=== PATIENT | male | born 1935 | race Caucasian/White ===

== ENCOUNTER 2016-09-09 05:39 | Inpatient (IN) | payer MEDICARE ==
[2016-09-09 06:17] LABS: ABSOLUTE EOSINOPHILS # (AUTO) 0.2 10^3/uL (0.0-0.6); ABSOLUTE LYMPHOCYTES (AUTO) 1.1 10^3/uL (0.5-4.7); ABSOLUTE MONOCYTES (AUTO) 1.9 10^3/uL (0.1-1.4); ABSOLUTE NEUT (AUTO) 10.6 10^3/uL (1.7-8.2); BASOPHILS % (AUTO) 0.3 % (0-2); EOSINOPHILS % (AUTO) 1.5 % (0-6); HEMATOCRIT 34.4 % (37.9-51.0); HEMOGLOBIN 11.8 g/dL (13.5-17.0); LYMPHOCYTES % (AUTO) 7.8 % (13-45); MEAN CORPUSCULAR HEMOGLOBIN 31.5 pg (27.0-33.4); MEAN CORPUSCULAR HGB CONC 34.4 g/dL (32.0-36.0); MEAN CORPUSCULAR VOLUME 92 fl (80-97); MONOCYTES % (AUTO) 13.7 % (3-13); RED BLOOD COUNT 3.75 10^6/uL (4.35-5.55); RED CELL DISTRIBUTION WIDTH 13.6 % (11.5-14.0); SEGMENTED NEUTROPHILS % (AUTO) 76.7 % (42-78); WHITE BLOOD COUNT 13.9 10^3/uL (4.0-10.5)
[2016-09-09 06:25] LABS: ARTERIAL BLOOD BASE EXCESS 1.6 mmol/L; ARTERIAL BLOOD O2 SATURATION 92.5 % (94-98)
--- NOTE | 2016-09-09 06:25 | ER Document Report ---
ED Respiratory Problem <RUMA LLOYD - Last Filed: 09/09/16 10:01> - General Mode of Arrival: Ambulatory Information source: Patient - HPI Patient complains to provider of: Short of breath Onset: Last week Duration: Worse/persistent Context: Hx COPD. denies: Hx asthma, Hx CHF, Recent cardiac event Cough: Nonproductive Associated symptoms: Cough, Difficulty breathing, Sweaty, Wheezing. denies: Ankle/leg swelling <DEYA TABARES - Last Filed: 09/14/16 06:01> - General Chief Complaint: Breathing Difficulty Stated Complaint: TROUBLE BREATHING,FEVER Notes: Patient is a 80-year-old male presenting to the emergency department concerned of difficulty breathing onset 1 week ago. Patient states that he recently has felt more sick and weak. Patient complains of cough and diaphoresis, but denies nausea, vomiting, or diarrhea. Patient's states that this morning prior to coming to the emergency department patient had a temperature of 100.4 . Patient and his are visiting from [place]. (DEYA TABARES) - Related Data Allergies/Adverse Reactions: levofloxacin [From Levaquin] Allergy (Verified 09/09/16 06:25) Sulfa (Sulfonamide Antibiotics) Allergy (Verified 09/09/16 06:25) Iodinated Contrast Media - Oral and Adverse Reaction (Verified 09/09/16 06:25) Home Medications: Current Home Medications Albuterol Sulfate [Proair HFA] 2 puff IN PRN PRN 09/09/16 [History] Diltiazem HCl [Cartia Xt] 1 cap PO DAILY 09/09/16 [History] Esomeprazole Magnesium [Nexium] 1 cap PO DAILY 09/09/16 [History] Fluticasone/Salmeterol [Advair 500-50 Diskus 28 Dose] 2 puff IN BID 09/09/16 [ History] Tamsulosin HCl [Tamsulosin HCl] 1 cap PO DAILY 09/09/16 [History] Theophylline Anhydrous [Theophylline] 1 tab PO BID 09/09/16 [History] Past Medical History - General Information source: Patient - Social History Smoking Status: Unknown if Ever Smoked Drug Abuse: None Lives with: Spouse/Significant other Family History: Reviewed & Not Pertinent - Past Medical History Cardiac Medical History: Denies: Hx Congestive Heart Failure Pulmonary Medical History: Reports: Hx COPD Denies: Hx Asthma Traumatic Medical History: Reports: Other - April 08, 2016-fell broke ribs <DEYA TABARES - Last Filed: 09/14/16 06:01> Review of Systems - Review of Systems Constitutional: See HPI, Diaphoresis, Fever, Weakness EENT: No symptoms reported Cardiovascular: No symptoms reported Respiratory: See HPI, Cough, Short of breath, Wheezing Gastrointestinal: No symptoms reported. denies: Diarrhea, Nausea, Vomiting Genitourinary: No symptoms reported Male Genitourinary: No symptoms reported Musculoskeletal: No symptoms reported Skin: No symptoms reported Hematologic/Lymphatic: No symptoms reported Neurological/Psychological: No symptoms reported -: Yes All other systems reviewed and negative <DEYA TABARES - Last Filed: 09/14/16 06:01> Physical Exam - Vital signs Interpretation: Tachycardic, Hypoxic, Tachypneic - General General appearance: Alert - HEENT Head: Normocephalic, Atraumatic Eyes: Normal Pupils: PERRL - Respiratory Respiratory status: Labored Chest status: Nontender Breath sounds: Decreased air movement - Bilaterally, Wheezing - Occasional inspiratory wheeze - Cardiovascular Rhythm: Tachycardia Heart sounds: Normal auscultation Murmur: No - Abdominal Inspection: Obese Tenderness: Nontender Organomegaly: No organomegaly - Back Back: Normal, Nontender - Extremities General upper extremity: Normal inspection, Nontender, Normal color, Normal ROM , Normal temperature. No: Edema General lower extremity: Normal inspection, Nontender, Normal color, Normal ROM , Normal temperature. No: Edema - Neurological Neuro grossly intact: Yes Cognition: Normal Orientation: AAOx4 Franklin Coma Scale Eye Opening: Spontaneous Franklin Coma Scale Verbal: Oriented Franklin Coma Scale Motor: Obeys Commands Yandel Coma Scale Total: 15 Speech: Normal - Psychological Associated symptoms: Normal affect, Normal mood - Skin Skin Temperature: Warm Skin Moisture: Dry Skin Color: Normal <DEYA TABARES - Last Filed: 09/14/16 06:01> - Vital signs Vitals: Temp Pulse Ox 97.9 F 93 09/09/16 05:51 09/09/16 05:51 (RUMA LLOYD) Course - Laboratory Result Diagrams: 09/09/16 06:00 09/09/16 06:00 <RUMA LLOYD - Last Filed: 09/09/16 10:01> - Laboratory Result Diagrams: 09/12/16 05:22 09/12/16 05:22 <DEYA TABARES - Last Filed: 09/14/16 06:01> - Re-evaluation Re-evalutation: 09/09/16 09:57 I personally performed the services described in the documentation, reviewed and edited the documentation which was dictated to my scribe in my presence, and it accurately records my words and actions. She presented to the emergency prone one-week history of cough shortness of breath worsening history of COPD but not on oxygen at home. On ED arrival he was hypoxic at 87% to 36 and tachycardic at 148 EKG showed sinus tachycardia with no ST segment elevation or depression. Chest x-ray concerning for bilateral pneumonia blood cultures Rocephin and Zithromax started as well as breathing treatments. VQ scan negative for pulmonary emboli troponin is negative no chest pain or cardiac complaints. Patient is significantly improved with antibiotics breathing treatments and oxygen he is no longer significantly hypoxic is not 93-94% on 2-3 L of nasal cannula heart rate has improved significantly. Spoke with the hospital's can amenable to the hospital for further assessment and evaluation 09/09/16 09:59 (RUMA LLOYD) - Vital Signs Vital signs: Temp Pulse Resp BP Pulse Ox 97.6 F 74 18 130/66 H 95 09/14/16 04:00 09/14/16 04:00 09/14/16 04:00 09/14/16 04:00 09/14/16 04:00 (RUMA LLOYD) - Laboratory Laboratory results interpreted by me: 09/09/16 09/09/16 09/09/16 06:00 06:00 06:12 WBC 13.9 H RBC 3.75 L Hgb 11.8 L Hct 34.4 L Lymphocytes % 7.8 L Monocytes % 13.7 H Absolute Neutrophils 10.6 H Absolute Monocytes 1.9 H ABG pH 7.47 H ABG pCO2 34.8 L ABG pO2 59.3 L ABG O2 Saturation 92.5 L Sodium 135.7 L Glucose 139 H (RUMA LLOYD) (DEYA TABARES) - EKG Interpretation by Me Additional EKG results interpreted by me: 09/09/16 10:01 EKG interpreted by myself to reveal sinus tachycardia with no acute ST segment elevation or depression. (RUMA LLOYD) Critical Care Note - Critical Care Note Total time excluding time spent on procedures (mins): 45 <RUMA LLOYD - Last Filed: 09/09/16 10:01> Scribe Documentation - Scribe Written by Krystian:: Deya Tabares 09/09/2016 06:20 acting as scribe for :: Dimitrios <DEYA TABARES - Last Filed: 09/14/16 06:01>
[2016-09-09 06:32] LABS: ANION GAP 13 (5-19); BLOOD UREA NITROGEN 16 mg/dL (7-20); CALCIUM 9.4 mg/dL (8.4-10.2); CARBON DIOXIDE 24 mmol/L (22-30); CHLORIDE 99 mmol/L (98-107); CREATININE RESULT 0.65 mg/dL (0.52-1.25); GLUCOSE 139 mg/dL (75-110); POTASSIUM 4.3 mmol/L (3.6-5.0); SODIUM 135.7 mmol/L (137-145)
[2016-09-09 06:44] LABS: CREATINE KINASE MB 2.15 ng/mL (<4.55); TROPONIN I 0.019 ng/mL
[2016-09-09] MEDS ORDERED: CEFTRIAXONE INJ 1000 MG VIAL IV ONE (06:48)
[2016-09-09] MEDS ORDERED: AZITHROMYCIN INJ 500 MG VIAL IV ONE (06:48)
[2016-09-09] MEDS ORDERED: ALBUTEROL SULFATE 0.083% NEB 2.5 MG/3 ML AMPUL NEB ONE ×2 (06:53)
[2016-09-09] MEDS ORDERED: IPRATROPIUM BROMIDE 0.02% NEB 0.5 MG/2.5 ML AMPUL NEB ONE (06:56)
--- NOTE | 2016-09-09 08:57 | EKG REPORT ---
SEVERITY:- ABNORMAL ECG - SINUS TACHYCARDIA VENTRICULAR PREMATURE COMPLEX BORDERLINE T ABNORMALITIES, LATERAL LEADS ST ELEVATION, CONSIDER INFERIOR INJURY : Confirmed by: See Alfred MD 09-Sep-2016 08:56:49
[2016-09-09] MEDS ORDERED: LEVALBUTEROL HCL NEB 1.25 MG/3 ML AMPUL NEB PRN (11:29)
[2016-09-09] MEDS ORDERED: ACETAMINOPHEN 325 MG TABLET PO PRN (11:29)
--- NOTE | 2016-09-09 11:50 | PDOC H&P ---
History of Present Illness Admission Date/PCP: 09/09/16 10:11 Patient complains of: Shortness of breath and weakness History of Present Illness: YANG CASTILLO is a 80 year old male, with history of COPD on home oxygen as needed percent to the hospital with inability to walk for the past 24 hours. Patient was visiting from [place] and started having cough with yellowish phlegm intermittent wheezing and shortness of breath for about a week. Patient will use nebulizers reporting partial relief of symptoms. 3 days ago the patient started to develop sore throat and sweating with subjective fever. Yesterday the patient started to develop weakness that is generalized body aches and pain and this morning he is unable to walk. He checked his pulse oximetry and is 84%. He was brought to the hospital for evaluation. Chest x- ray showed increased interstitial markings with density in the left lower lobe. Intravenous antibiotic was given, as well as steroids and nebulizers. The patient was referred for admission. Past Medical History Cardiac Medical History: Reports: Atrial Fibrillation - Paroxysmal, Hypertension Denies: Congestive Heart Failure Pulmonary Medical History: Reports: Chronic Obstructive Pulmonary Disease (COPD) , Pneumonia, Respiratory Failure, Other - Chronic hypoxemic respiratory failure Denies: Asthma Renal/ Medical History: Reports: Other - BPH Malignancy Medical History: Reports: Other - Questionable pancreatic malignancy GI Medical History: Reports: Gastroesophageal Reflux Disease, Hiatal Hernia, Other - Dawson's esophagus Traumatic Medical History: Reports: Other - April 08, 2016-fell broke ribs Past Surgical History Past Surgical History: Reports: Cholecystectomy, Herniorrhaphy, Other - Exploratory laparotomy for pancreatic surgery Social History Lives with: Spouse/Significant other Smoking Status: Former Smoker Frequency of Alcohol Use: Rare Hx Recreational Drug Use: No Drugs: None Family History Family History: CVA, Malignancy - colon Parental Family History Reviewed: Yes Children Family History Reviewed: Yes Sibling(s) Family History Reviewed.: Yes Medication/Allergy Home Medications: Albuterol Sulfate [Proair HFA] 2 puff IN PRN PRN 09/09/16 Diltiazem HCl [Cartia Xt] 1 cap PO DAILY 09/09/16 Esomeprazole Magnesium [Nexium] 1 cap PO DAILY 09/09/16 Fluticasone/Salmeterol [Advair 500-50 Diskus 28 Dose] 2 puff IN BID 09/09/16 Tamsulosin HCl [Tamsulosin HCl] 1 cap PO DAILY 09/09/16 Theophylline Anhydrous [Theophylline] 1 tab PO BID 09/09/16 Allergies/Adverse Reactions: levofloxacin [From Levaquin] Allergy (Verified 09/09/16 06:25) Sulfa (Sulfonamide Antibiotics) Allergy (Verified 09/09/16 06:25) Iodinated Contrast Media - Oral and Adverse Reaction (Verified 09/09/16 06:25) Review of Systems Constitutional: PRESENT: chills, fever(s), weakness - Generalized, other - Sweating. ABSENT: headache(s), night sweats, weight gain, weight loss Eyes: ABSENT: visual disturbances Ears: ABSENT: hearing changes Nose, Mouth, and Throat: PRESENT: sore throat - For the last 3 days. ABSENT: mouth pain Cardiovascular: PRESENT: dyspnea on exertion, palpitations - Occasional. ABSENT : chest pain, edema, orthropnea Respiratory: PRESENT: cough, dyspnea, sputum - Yellowish. ABSENT: hemoptysis Gastrointestinal: ABSENT: abdominal pain, coffee ground emesis, constipation, diarrhea, hematemesis, hematochezia, melena, nausea, vomiting Genitourinary: ABSENT: difficulty urinating, dysuria, hematuria Musculoskeletal: ABSENT: joint swelling Integumentary: ABSENT: pruritus, rash, wounds Neurological: ABSENT: abnormal gait, abnormal speech, confusion, dizziness, focal weakness, syncope Psychiatric: ABSENT: anxiety, depression, homidical ideation, suicidal ideation Endocrine: ABSENT: cold intolerance, heat intolerance, polydipsia, polyuria Hematologic/Lymphatic: ABSENT: easy bleeding, easy bruising Physical Exam Vital Signs: Temp Pulse Resp BP Pulse Ox 97.9 F 14 124/68 95 09/09/16 05:51 09/09/16 09:00 09/09/16 08:01 09/09/16 09:00 General appearance: PRESENT: mild distress, obese Head exam: PRESENT: atraumatic, normocephalic Eye exam: PRESENT: conjunctiva pink, EOMI, PERRLA. ABSENT: scleral icterus Ear exam: PRESENT: normal external ear exam. ABSENT: drainage Mouth exam: PRESENT: moist, neck supple, tongue midline Throat exam: ABSENT: post pharyngeal erythema, tonsillar erythema Neck exam: ABSENT: carotid bruit, JVD, lymphadenopathy, thyromegaly Respiratory exam: PRESENT: rhonchi - few, wheezes - Scattered bilateral. ABSENT : crackles, rales Cardiovascular exam: PRESENT: RRR, +S1, +S2, tachycardia. ABSENT: diastolic murmur, rubs, systolic murmur Pulses: PRESENT: normal dorsalis pedis pul Vascular exam: PRESENT: normal capillary refill GI/Abdominal exam: PRESENT: normal bowel sounds, soft. ABSENT: distended, guarding, mass, organolmegaly, rebound, tenderness Rectal exam: PRESENT: deferred Extremities exam: PRESENT: full ROM. ABSENT: calf tenderness, clubbing, pedal edema Neurological exam: PRESENT: alert, awake, oriented to person, oriented to place , oriented to time, oriented to situation Psychiatric exam: PRESENT: appropriate affect, normal mood. ABSENT: homicidal ideation, suicidal ideation Skin exam: PRESENT: dry, intact, warm. ABSENT: cyanosis, rash Results Impressions: Chest X-Ray 09/09/16 00:00 IMPRESSION: 1. There is diffuse prominence of the interstitium and peribronchial cuffing which could represent underlying viral illness or reactive airway disease. There is vague opacity seen the left lateral lung base could represent atelectasis, edema or infiltrate. 2. Mild prominence of the left hilum, weight could be due to adenopathy or patient positioning though underlying mass lesion is not entirely excluded. Lung Scan-VQ [place] 09/09/16 06:57 IMPRESSION: NORMAL VENTILATION-PERFUSION LUNG SCAN. NEGATIVE FOR PULMONARY EMBOLI. Assessment & Plan - Diagnosis (1) Acute hypoxemic respiratory failure Is this a current diagnosis for this admission?: Yes (2) Pneumonia Qualifiers: Pneumonia type: due to unspecified organism Laterality: left Lung location: lower lobe of lung Qualified Code(s): J18.1 - Lobar pneumonia, unspecified organism Is this a current diagnosis for this admission?: Yes (3) COPD exacerbation Is this a current diagnosis for this admission?: Yes (4) GERD (gastroesophageal reflux disease) Qualifiers: Esophagitis presence: without esophagitis Qualified Code(s): K21.9 - Gastro-esophageal reflux disease without esophagitis Is this a current diagnosis for this admission?: Yes (5) Essential hypertension Is this a current diagnosis for this admission?: Yes (6) BPH (benign prostatic hyperplasia) Qualifiers: Prostatic enlargement morphology: unspecified morphology Lower urinary tract symptom presence: presence of symptoms unspecified Qualified Code(s ): N40.0 - Benign prostatic hyperplasia without lower urinary tract symptoms Is this a current diagnosis for this admission?: Yes - Time Time Spent: 50 to 70 Minutes Anticipated discharge: Home with Homehealth Within: within 72 hours - Inpatient Certification Based on my medical assessment, after consideration of the patient's comorbidities, presenting symptoms, or acuity I expect that the services needed warrant INPATIENT care.: Yes I certify that my determination is in accordance with my understanding of Medicare's requirements for reasonable and necessary INPATIENT services [42 CFR 412.3e].: Yes Medical Necessity: Significant Comorbidiites Make Outpatient Treatment Too Risky , Need Close Monitoring Due to Risk of Patient Decompensation, Need For IV Fluids, Need for IV Antibiotics, Risk of Complication if Not Cared For in Hospital Post Hospital Care: D/C Manager Data Documentation - Plan Summary Plan Summary: The patient will be admitted to telemetry. We will begin antibiotic with cefepime and Zithromax. Cultures of the sputum and blood will be sent . We will gently hydrate the patient. We will begin intravenous Solu-Medrol and RTC bronchodilators. We will give mucolytic, antipyretic, and analgesics as needed. Supplemental oxygen will be given. DVT prophylaxis with Lovenox will be placed. We will monitor electrolytes. We will monitor heart rate. Patient will be placed on antiplatelet therapy. Continue supportive care. Further testing depends on the initial evaluation as outlined above.
[2016-09-09] MEDS: LEVALBUTEROL HCL NEB 1.25 MG/3 ML AMPUL NEB SCH ×3 (13:43→20:12)
[2016-09-09] MEDS: IPRATROPIUM BROMIDE 0.02% NEB 0.5 MG/2.5 ML AMPUL NEB SCH ×3 (13:43→20:12)
[2016-09-09] MEDS: NORMAL SALINE 1000 ML 1,000 ML IV PRN (13:47)
[2016-09-09] MEDS ORDERED: DILTIAZEM HCL 180 MG CAPSULE.CR PO ONE (14:00)
[2016-09-09] MEDS ORDERED: ASPIRIN 325 MG TABLET PO ONE (14:30)
[2016-09-09] MEDS ORDERED: ENOXAPARIN SODIUM INJ 40 MG/0.4 ML DISP.SYRIN SUBCUT ONE (15:00)
[2016-09-09] MEDS: LANSOPRAZOLE 30 MG TAB.RAP.DR PO SCH (16:45)
[2016-09-09] MEDS: METHYLPREDNISOLONE INJ 125 MG/2 ML SDV IV SCH (17:35)
[2016-09-09] MEDS: TAMSULOSIN HCL 0.4 MG CAP.SR.24H PO SCH (17:36)
[2016-09-09] MEDS: THEOPHYLLINE ANHYDROUS 100 MG TAB.SR.12H PO SCH (17:43)
[2016-09-09] MEDS ORDERED: CEFEPIME 2 GM/D5W RTU 50 ML IV SCH (22:00)
[2016-09-09] MEDS: GUAIFENESIN 600 MG TABLET.SA PO SCH (22:27)
[2016-09-09] MEDS: CEFEPIME HCL 2 GM in DEXTROSE 5%-WATER 50 ML IV SCH (22:28)
[2016-09-09 23:44] LABS: APPEARANCE,URINE CLEAR; BILIRUBIN,URINE NEGATIVE (NEGATIVE); GLUCOSE, URINE NEGATIVE (NEGATIVE); KETONES,URINE NEGATIVE (NEGATIVE); LEUKOCYTE ESTERASE,URINE NEGATIVE (NEGATIVE); NITRITE,URINE NEGATIVE (NEGATIVE); PROTEIN,URINE 30 mg/dL (NEGATIVE); URINE SPECIFIC GRAVITY 1.023; UROBILINOGEN,URINE NEGATIVE mg/dL (<2.0)
[2016-09-10] MEDS: IPRATROPIUM BROMIDE 0.02% NEB 0.5 MG/2.5 ML AMPUL NEB SCH ×6 (00:25→21:00)
[2016-09-10] MEDS: LEVALBUTEROL HCL NEB 1.25 MG/3 ML AMPUL NEB SCH ×6 (00:26→21:00)
[2016-09-10] MEDS: METHYLPREDNISOLONE INJ 125 MG/2 ML SDV IV SCH ×3 (00:27→11:15)
[2016-09-10 05:47] LABS: ANION GAP 13 (5-19); BLOOD UREA NITROGEN 19 mg/dL (7-20); CARBON DIOXIDE 21 mmol/L (22-30); CHLORIDE 102 mmol/L (98-107); CREATININE RESULT 0.48 mg/dL (0.52-1.25); GLUCOSE 151 mg/dL (75-110); POTASSIUM 3.9 mmol/L (3.6-5.0); SODIUM 135.5 mmol/L (137-145)
[2016-09-10] MEDS: NORMAL SALINE 1000 ML 1,000 ML IV PRN ×2 (06:26→21:58)
[2016-09-10] MEDS: LANSOPRAZOLE 30 MG TAB.RAP.DR PO SCH ×2 (06:27→17:57)
[2016-09-10] MEDS: ENOXAPARIN SODIUM INJ 40 MG/0.4 ML DISP.SYRIN SUBCUT SCH (08:01)
[2016-09-10] MEDS ORDERED: TAMSULOSIN HCL 0.4 MG CAP.SR.24H PO SCH (10:00)
[2016-09-10] MEDS: THEOPHYLLINE ANHYDROUS 100 MG TAB.SR.12H PO SCH ×2 (10:00→17:57)
[2016-09-10] MEDS: CEFEPIME HCL 2 GM in DEXTROSE 5%-WATER 50 ML IV SCH ×2 (11:08→21:58)
[2016-09-10] MEDS: AZITHROMYCIN 500 MG in DEXTROSE 5%-WATER 250 ML IV SCH (11:09)
[2016-09-10] MEDS: DILTIAZEM HCL 180 MG CAPSULE.CR PO SCH (11:10)
[2016-09-10] MEDS: ASPIRIN 325 MG TABLET PO SCH (11:11)
[2016-09-10] MEDS: GUAIFENESIN 600 MG TABLET.SA PO SCH ×2 (11:11→21:58)
--- NOTE | 2016-09-10 11:27 | PDOC PROGRESS REPORT ---
Subjective Progress Note for:: 09/10/16 Subjective:: Feels better This morning. O2 saturation intermittently drops but patient does not feel any discomfort. Wheezing is gone. Shortness of breath mainly on exertion. Still with a lot of coughing. No chills or fever. No diarrhea. Denies any chest pain at this time. Physical Exam Vital Signs: Temp Pulse Resp BP Pulse Ox 97.4 F 109 H 20 112/71 96 09/10/16 04:00 09/10/16 07:54 09/10/16 07:54 09/10/16 04:00 09/10/16 07:54 Pulse Oximeter Continuous Start: 09/09/16 11: 30 Freq: RTQ4 Status: Active Document 09/10/16 07:54 [facility] [place] (Rec: 09/10/16 08:14 [facility] [place] [email or web address]) Pulse Oximetry Assessment Oxygen Saturation (92-100) 96 Oxygen Flow Rate (L/min) 2 Oxygen Delivery Method Nasal Cannula Fraction of Inspired Oxygen (FIO2) 28 Equipment Usage Equipment in Use Continuous SpO2 Machine # N [id number] Intake & Output 09/09/16 09/10/16 09/11/16 06:59 06:59 06:59 Intake Total 1806 Balance 1806 Weight 78.5 kg General appearance: PRESENT: no acute distress, cooperative Head exam: PRESENT: normocephalic Eye exam: PRESENT: EOMI Mouth exam: PRESENT: moist, neck supple Neck exam: PRESENT: JVD Respiratory exam: PRESENT: decreased breath sounds, rhonchi - few bilateral, unlabored. ABSENT: wheezes Cardiovascular exam: PRESENT: RRR. ABSENT: gallop GI/Abdominal exam: PRESENT: hypoactive bowel sounds, soft. ABSENT: distended, tenderness Extremities exam: ABSENT: pedal edema Skin exam: PRESENT: dry, warm. ABSENT: cyanosis Results Laboratory Results: 09/10/16 05:00 09/09/16 09/10/16 23:20 05:00 Sodium 135.5 L Potassium 3.9 Chloride 102 Carbon Dioxide 21 L Anion Gap 13 BUN 19 Creatinine 0.48 L Est GFR ( Amer) > 60 Est GFR (Non-Af Amer) > 60 Glucose 151 H Calcium 9.0 Urine Color YELLOW Urine Appearance CLEAR Urine pH 5.0 Ur Specific [place] 1.023 Urine Protein 30 H Urine Glucose (UA) NEGATIVE Urine Ketones NEGATIVE Urine Blood NEGATIVE Urine Nitrite NEGATIVE Ur Leukocyte Esterase NEGATIVE Urine WBC (Auto) 2 Urine RBC (Auto) 2 Impressions: Chest X-Ray 09/09/16 00:00 IMPRESSION: 1. There is diffuse prominence of the interstitium and peribronchial cuffing which could represent underlying viral illness or reactive airway disease. There is vague opacity seen the left lateral lung base could represent atelectasis, edema or infiltrate. 2. Mild prominence of the left hilum, weight could be due to adenopathy or patient positioning though underlying mass lesion is not entirely excluded. Lung Scan-VQ NM 09/09/16 06:57 IMPRESSION: NORMAL VENTILATION-PERFUSION LUNG SCAN. NEGATIVE FOR PULMONARY EMBOLI. Assessment & Plan - Diagnosis (1) Acute hypoxemic respiratory failure Is this a current diagnosis for this admission?: Yes (2) Pneumonia Qualifiers: Pneumonia type: due to unspecified organism Laterality: left Lung location: lower lobe of lung Qualified Code(s): J18.1 - Lobar pneumonia, unspecified organism Is this a current diagnosis for this admission?: Yes (3) COPD exacerbation Is this a current diagnosis for this admission?: Yes (4) GERD (gastroesophageal reflux disease) Qualifiers: Esophagitis presence: without esophagitis Qualified Code(s): K21.9 - Gastro-esophageal reflux disease without esophagitis Is this a current diagnosis for this admission?: Yes (5) Essential hypertension Is this a current diagnosis for this admission?: Yes (6) BPH (benign prostatic hyperplasia) Qualifiers: Prostatic enlargement morphology: unspecified morphology Lower urinary tract symptom presence: presence of symptoms unspecified Qualified Code(s ): N40.0 - Benign prostatic hyperplasia without lower urinary tract symptoms Is this a current diagnosis for this admission?: Yes - Time Time Spent with patient: 25-34 minutes - Plan Summary Plan Summary: Continue antibiotics. Follow cultures. She stopped oral steroids. Continue bronchodilators. We will try the patient on physical therapy later today. Continue supportive care.
[2016-09-10] MEDS ORDERED: PREDNISONE 20 MG TABLET PO ONE (12:00)
[2016-09-10] MEDS: TAMSULOSIN HCL 0.4 MG CAP.SR.24H PO SCH (17:56)
[2016-09-11] MEDS: LEVALBUTEROL HCL NEB 1.25 MG/3 ML AMPUL NEB SCH ×6 (00:13→20:50)
[2016-09-11] MEDS: IPRATROPIUM BROMIDE 0.02% NEB 0.5 MG/2.5 ML AMPUL NEB SCH ×6 (00:13→20:51)
[2016-09-11] MEDS: LANSOPRAZOLE 30 MG TAB.RAP.DR PO SCH ×2 (05:06→17:11)
[2016-09-11] MEDS: GUAIFENESIN 600 MG TABLET.SA PO SCH ×2 (09:10→21:09)
[2016-09-11] MEDS: DILTIAZEM HCL 180 MG CAPSULE.CR PO SCH (09:11)
[2016-09-11] MEDS: THEOPHYLLINE ANHYDROUS 100 MG TAB.SR.12H PO SCH ×2 (09:11→17:11)
[2016-09-11] MEDS: ASPIRIN 325 MG TABLET PO SCH (09:11)
[2016-09-11] MEDS: PREDNISONE 20 MG TABLET PO SCH (09:11)
[2016-09-11] MEDS: ENOXAPARIN SODIUM INJ 40 MG/0.4 ML DISP.SYRIN SUBCUT SCH (09:12)
[2016-09-11] MEDS: CEFEPIME HCL 2 GM in DEXTROSE 5%-WATER 50 ML IV SCH ×2 (10:07→21:09)
[2016-09-11] MEDS: AZITHROMYCIN 500 MG in DEXTROSE 5%-WATER 250 ML IV SCH (10:10)
--- NOTE | 2016-09-11 12:50 | PDOC PROGRESS REPORT ---
Subjective Progress Note for:: 09/11/16 Subjective:: Complains of constipation. Physical Exam Vital Signs: Temp Pulse Resp BP Pulse Ox 97.7 F 120 H 24 H 130/56 H 96 09/11/16 08:27 09/11/16 11:56 09/11/16 11:56 09/11/16 08:27 09/11/16 11:56 Pulse Oximeter Continuous Start: 09/09/16 11: 30 Freq: RTQ4 Status: Active Document 09/11/16 11:56 [facility] [place] (Rec: 09/11/16 12:10 [facility] [place] [email or web address]) Pulse Oximetry Assessment Oxygen Saturation (92-100) 96 Oxygen Flow Rate (L/min) 2.5 Oxygen Delivery Method Nasal Cannula Fraction of Inspired Oxygen (FIO2) 30 Equipment Usage Equipment in Use Continuous SpO2 Machine # N 5 Intake & Output 09/10/16 09/11/16 09/12/16 06:59 06:59 06:59 Intake Total 1806 2679 Output Total 375 Balance 1806 2304 Weight 78.5 kg 78.6 kg General appearance: PRESENT: no acute distress Eye exam: PRESENT: conjunctiva pink Mouth exam: PRESENT: moist, tongue midline Neck exam: ABSENT: JVD Respiratory exam: PRESENT: rales - Left base., wheezes - Scattered expiratory wheezes Cardiovascular exam: PRESENT: tachycardia. ABSENT: gallop, rubs, systolic murmur GI/Abdominal exam: PRESENT: normal bowel sounds, soft. ABSENT: distended, guarding, mass, organolmegaly, rebound, tenderness Extremities exam: ABSENT: calf tenderness, clubbing, pedal edema Neurological exam: PRESENT: alert, awake, oriented to person, oriented to place , oriented to time, oriented to situation Psychiatric exam: PRESENT: appropriate affect Skin exam: PRESENT: dry, intact, warm. ABSENT: cyanosis, rash Results Laboratory Results: 09/10/16 05:00 Impressions: Chest X-Ray 09/09/16 00:00 IMPRESSION: 1. There is diffuse prominence of the interstitium and peribronchial cuffing which could represent underlying viral illness or reactive airway disease. There is vague opacity seen the left lateral lung base could represent atelectasis, edema or infiltrate. 2. Mild prominence of the left hilum, weight could be due to adenopathy or patient positioning though underlying mass lesion is not entirely excluded. Lung Scan-VQ [place] 09/09/16 06:57 IMPRESSION: NORMAL VENTILATION-PERFUSION LUNG SCAN. NEGATIVE FOR PULMONARY EMBOLI. Assessment & Plan - Diagnosis (1) Acute hypoxemic respiratory failure Is this a current diagnosis for this admission?: YesPlan: Patient has an acute COPD exacerbation along with pneumonia as the cause. He is slowly improving. He is chronically on oxygen. He lives in [place] and is here visiting. He does not have oxygen at his family's house here. We'll need to discuss with respiratory therapy and discharge planning about him going with oxygen. (2) Pneumonia Qualifiers: Pneumonia type: due to unspecified organism Laterality: left Lung location: lower lobe of lung Qualified Code(s): J18.1 - Lobar pneumonia, unspecified organism Is this a current diagnosis for this admission?: YesPlan: Cultures are negative so far. We'll continue with the cefepime and Zithromax. (3) COPD exacerbation Is this a current diagnosis for this admission?: YesPlan: Continue with theophylline and prednisone. (4) BPH (benign prostatic hyperplasia) Qualifiers: Prostatic enlargement morphology: unspecified morphology Lower urinary tract symptom presence: presence of symptoms unspecified Qualified Code(s ): N40.0 - Benign prostatic hyperplasia without lower urinary tract symptoms Is this a current diagnosis for this admission?: YesPlan: Asymptomatic. (5) Essential hypertension Is this a current diagnosis for this admission?: YesPlan: Patient is chronically on diltiazem. He is tachycardic today so we will increase the dose of diltiazem. (6) GERD (gastroesophageal reflux disease) Qualifiers: Esophagitis presence: without esophagitis Qualified Code(s): K21.9 - Gastro-esophageal reflux disease without esophagitis Is this a current diagnosis for this admission?: YesPlan: Asymptomatic. - Time Time Spent with patient: 25-34 minutes - Inpatient Certification Medical Necessity: Need for IV Antibiotics
[2016-09-11] MEDS: LACTULOSE SYRUP 20 GM/30 ML UDCUP PO SCH ×2 (13:01→21:10)
[2016-09-11] MEDS ORDERED: DILTIAZEM HCL 90 MG TABLET PO ONE (13:30)
[2016-09-11] MEDS: DILTIAZEM HCL 90 MG TABLET PO SCH (17:11)
[2016-09-11] MEDS: TAMSULOSIN HCL 0.4 MG CAP.SR.24H PO SCH (17:11)
[2016-09-11] MEDS: CARBOXYMETHYLCELLULOSE SOD 0.5% 0.4 ML DROPERETTE OU PRN (17:42)
[2016-09-12] MEDS: DILTIAZEM HCL 90 MG TABLET PO SCH ×5 (00:16→23:25)
[2016-09-12] MEDS: LEVALBUTEROL HCL NEB 1.25 MG/3 ML AMPUL NEB SCH ×5 (00:53→19:49)
[2016-09-12] MEDS: IPRATROPIUM BROMIDE 0.02% NEB 0.5 MG/2.5 ML AMPUL NEB SCH ×3 (00:53→09:00)
[2016-09-12] MEDS: LANSOPRAZOLE 30 MG TAB.RAP.DR PO SCH ×2 (05:08→17:20)
[2016-09-12] MEDS: LACTULOSE SYRUP 20 GM/30 ML UDCUP PO SCH ×3 (05:09→21:19)
[2016-09-12 06:04] LABS: ABSOLUTE LYMPHOCYTES (AUTO) 0.8 10^3/uL (0.5-4.7); ABSOLUTE MONOCYTES (AUTO) 1.1 10^3/uL (0.1-1.4); ABSOLUTE NEUT (AUTO) 6.4 10^3/uL (1.7-8.2); BASOPHILS % (AUTO) 0.1 % (0-2); HEMATOCRIT 28.7 % (37.9-51.0); HGB HCT DIFFERENCE 1.3; LYMPHOCYTES % (AUTO) 9.7 % (13-45); MEAN CORPUSCULAR HEMOGLOBIN 31.7 pg (27.0-33.4); MEAN CORPUSCULAR HGB CONC 34.7 g/dL (32.0-36.0); MEAN CORPUSCULAR VOLUME 91 fl (80-97); MONOCYTES % (AUTO) 12.8 % (3-13); RED BLOOD COUNT 3.15 10^6/uL (4.35-5.55); RED CELL DISTRIBUTION WIDTH 13.8 % (11.5-14.0); SEGMENTED NEUTROPHILS % (AUTO) 77.4 % (42-78); WHITE BLOOD COUNT 8.3 10^3/uL (4.0-10.5)
[2016-09-12 06:14] LABS: ANION GAP 10 (5-19); BLOOD UREA NITROGEN 22 mg/dL (7-20); CALCIUM 8.8 mg/dL (8.4-10.2); CARBON DIOXIDE 23 mmol/L (22-30); CHLORIDE 103 mmol/L (98-107); CREATININE RESULT 0.71 mg/dL (0.52-1.25); GLUCOSE 74 mg/dL (75-110); POTASSIUM 4.2 mmol/L (3.6-5.0); SODIUM 135.7 mmol/L (137-145)
[2016-09-12] MEDS: CARBOXYMETHYLCELLULOSE SOD 0.5% 0.4 ML DROPERETTE OU PRN (08:29)
[2016-09-12] MEDS: ENOXAPARIN SODIUM INJ 40 MG/0.4 ML DISP.SYRIN SUBCUT SCH (08:29)
[2016-09-12] MEDS: PREDNISONE 20 MG TABLET PO SCH (09:07)
[2016-09-12] MEDS: ASPIRIN 325 MG TABLET PO SCH (09:07)
[2016-09-12] MEDS: THEOPHYLLINE ANHYDROUS 100 MG TAB.SR.12H PO SCH ×2 (09:07→17:20)
[2016-09-12] MEDS: GUAIFENESIN 600 MG TABLET.SA PO SCH ×2 (09:07→21:19)
[2016-09-12] MEDS: CEFEPIME HCL 2 GM in DEXTROSE 5%-WATER 50 ML IV SCH ×2 (09:08→21:19)
[2016-09-12] MEDS: AZITHROMYCIN 500 MG in DEXTROSE 5%-WATER 250 ML IV SCH (09:56)
[2016-09-12] MEDS: FLUTICASONE/SALMETEROL DISKUS 500-50 MCG/DOSE IH SCH ×2 (10:33→21:19)
[2016-09-12] MEDS: TIOTROPIUM BROMIDE DPI 5 CAP/KIT (18 MCG/CAP) IH SCH (10:34)
--- NOTE | 2016-09-12 14:24 | PDOC PROGRESS REPORT ---
Subjective Progress Note for:: 09/12/16 Subjective:: Continues to have mild cough. Physical Exam Vital Signs: Temp Pulse Resp BP Pulse Ox 97.4 F 82 22 H 105/56 L 95 09/12/16 12:28 09/12/16 14:00 09/12/16 12:28 09/12/16 12:28 09/12/16 12:28 Pulse Oximeter Continuous Start: 09/09/16 11: 30 Freq: RTQ4 Status: Active Document 09/12/16 09:02 HCR (Rec: 09/12/16 10:03 HCR [email or web address]) Pulse Oximetry Assessment Oxygen Saturation (92-100) 98 Oxygen Flow Rate (L/min) 3.5 Oxygen Delivery Method Nasal Cannula Equipment Usage Equipment in Use Continuous SpO2 Machine # 5 Intake & Output 09/11/16 09/12/16 09/13/16 06:59 06:59 06:59 Intake Total 2679 1913 Output Total 375 1700 Balance 2304 213 Weight 78.6 kg 79.2 kg General appearance: PRESENT: no acute distress Eye exam: PRESENT: conjunctiva pink Mouth exam: PRESENT: moist, tongue midline Neck exam: ABSENT: JVD Respiratory exam: PRESENT: wheezes - Right lung rinaldi Cardiovascular exam: PRESENT: RRR. ABSENT: diastolic murmur, rubs, systolic murmur GI/Abdominal exam: PRESENT: normal bowel sounds, soft. ABSENT: distended, guarding, mass, organolmegaly, rebound, tenderness Extremities exam: ABSENT: calf tenderness, clubbing, pedal edema Neurological exam: PRESENT: alert, awake, oriented to person, oriented to place Psychiatric exam: PRESENT: appropriate affect Skin exam: PRESENT: dry, intact, warm. ABSENT: cyanosis, rash Results Laboratory Results: 09/12/16 05:22 09/12/16 05:22 09/12/16 09/12/16 05:22 05:22 WBC 8.3 RBC 3.15 L Hgb 10.0 L Hct 28.7 L MCV 91 MCH 31.7 MCHC 34.7 RDW 13.8 Plt Count 276 Seg Neutrophils % 77.4 Lymphocytes % 9.7 L Monocytes % 12.8 Eosinophils % 0.0 Basophils % 0.1 Absolute Neutrophils 6.4 Absolute Lymphocytes 0.8 Absolute Monocytes 1.1 Absolute Eosinophils 0.0 Absolute Basophils 0.0 Sodium 135.7 L Potassium 4.2 Chloride 103 Carbon Dioxide 23 Anion Gap 10 BUN 22 H Creatinine 0.71 Est GFR ( Amer) > 60 Est GFR (Non-Af Amer) > 60 Glucose 74 L Calcium 8.8 09/09/16 16:10 Sputum Gram Stain - Final 09/09/16 16:10 Sputum Sputum Culture - Final NORMAL CARMELA Impressions: Chest X-Ray 09/09/16 00:00 IMPRESSION: 1. There is diffuse prominence of the interstitium and peribronchial cuffing which could represent underlying viral illness or reactive airway disease. There is vague opacity seen the left lateral lung base could represent atelectasis, edema or infiltrate. 2. Mild prominence of the left hilum, weight could be due to adenopathy or patient positioning though underlying mass lesion is not entirely excluded. Lung Scan-VQ NM 09/09/16 06:57 IMPRESSION: NORMAL VENTILATION-PERFUSION LUNG SCAN. NEGATIVE FOR PULMONARY EMBOLI. Assessment & Plan - Diagnosis (1) Acute hypoxemic respiratory failure Is this a current diagnosis for this admission?: YesPlan: Patient has an acute COPD exacerbation along with pneumonia as the cause. He is slowly improving. He is chronically on oxygen. He lives in [place] and is here visiting. He does not have oxygen at his family's house here. We'll need to discuss with respiratory therapy and discharge planning about him going with oxygen. (2) Pneumonia Qualifiers: Pneumonia type: due to unspecified organism Laterality: left Lung location: lower lobe of lung Qualified Code(s): J18.1 - Lobar pneumonia, unspecified organism Is this a current diagnosis for this admission?: YesPlan: Cultures are negative so far. We'll continue with the cefepime and Zithromax. (3) COPD exacerbation Is this a current diagnosis for this admission?: YesPlan: Continue with theophylline and prednisone. (4) BPH (benign prostatic hyperplasia) Qualifiers: Prostatic enlargement morphology: unspecified morphology Lower urinary tract symptom presence: presence of symptoms unspecified Qualified Code(s ): N40.0 - Benign prostatic hyperplasia without lower urinary tract symptoms Is this a current diagnosis for this admission?: YesPlan: Asymptomatic. (5) Essential hypertension Is this a current diagnosis for this admission?: YesPlan: Patient is chronically on diltiazem. (6) GERD (gastroesophageal reflux disease) Qualifiers: Esophagitis presence: without esophagitis Qualified Code(s): K21.9 - Gastro-esophageal reflux disease without esophagitis Is this a current diagnosis for this admission?: Yes - Time Time Spent with patient: 25-34 minutes - Inpatient Certification Medical Necessity: Need Close Monitoring Due to Risk of Patient Decompensation, Need for IV Antibiotics
[2016-09-12] MEDS: TAMSULOSIN HCL 0.4 MG CAP.SR.24H PO SCH (17:20)
[2016-09-13] MEDS: LEVALBUTEROL HCL NEB 1.25 MG/3 ML AMPUL NEB SCH ×4 (02:08→20:47)
[2016-09-13] MEDS: LANSOPRAZOLE 30 MG TAB.RAP.DR PO SCH ×2 (05:21→17:11)
[2016-09-13] MEDS: LACTULOSE SYRUP 20 GM/30 ML UDCUP PO SCH ×3 (05:21→21:53)
[2016-09-13] MEDS: DILTIAZEM HCL 90 MG TABLET PO SCH ×4 (05:21→23:59)
[2016-09-13] MEDS: ENOXAPARIN SODIUM INJ 40 MG/0.4 ML DISP.SYRIN SUBCUT SCH (08:06)
[2016-09-13] MEDS: FLUTICASONE/SALMETEROL DISKUS 500-50 MCG/DOSE IH SCH ×2 (09:41→21:52)
[2016-09-13] MEDS: TIOTROPIUM BROMIDE DPI 5 CAP/KIT (18 MCG/CAP) IH SCH (09:42)
[2016-09-13] MEDS: PREDNISONE 20 MG TABLET PO SCH (09:43)
[2016-09-13] MEDS: ASPIRIN 325 MG TABLET PO SCH (09:44)
[2016-09-13] MEDS: GUAIFENESIN 600 MG TABLET.SA PO SCH ×2 (09:46→21:52)
[2016-09-13] MEDS: AZITHROMYCIN 250 MG TABLET PO SCH (09:46)
[2016-09-13] MEDS: THEOPHYLLINE ANHYDROUS 100 MG TAB.SR.12H PO SCH ×2 (09:46→17:11)
[2016-09-13] MEDS: CARBOXYMETHYLCELLULOSE SOD 0.5% 0.4 ML DROPERETTE OU PRN (09:47)
[2016-09-13] MEDS: CEFEPIME HCL 2 GM in DEXTROSE 5%-WATER 50 ML IV SCH ×2 (09:56→21:52)
[2016-09-13] MEDS: METOPROLOL TARTRATE 25 MG TABLET PO SCH ×2 (10:23→21:52)
--- NOTE | 2016-09-13 11:02 | PDOC PROGRESS REPORT ---
Subjective Progress Note for:: 09/13/16 Subjective:: Continues to have mild cough. Has had some episodes of SVT. Physical Exam Vital Signs: Temp Pulse Resp BP Pulse Ox 97.4 F 90 18 135/63 H 95 09/13/16 05:18 09/13/16 08:36 09/13/16 08:36 09/13/16 05:18 09/13/16 08:36 Pulse Oximeter Continuous Start: 09/09/16 11: 30 Freq: RTQ4 Status: Active Document 09/13/16 08:36 HCR (Rec: 09/13/16 10:18 HCR [email or web address]) Pulse Oximetry Assessment Oxygen Saturation (92-100) 95 Oxygen Flow Rate (L/min) 2 Oxygen Delivery Method Nasal Cannula Equipment Usage Equipment in Use Continuous SpO2 Machine # 5 Intake & Output 09/12/16 09/13/16 09/14/16 06:59 06:59 06:59 Intake Total 1913 1020 Output Total 1700 1230 Balance 213 -210 Weight 79.2 kg 80.3 kg General appearance: PRESENT: no acute distress Eye exam: PRESENT: conjunctiva pink Mouth exam: PRESENT: moist, tongue midline Neck exam: ABSENT: JVD Respiratory exam: PRESENT: wheezes - Left-sided wheezes. Cardiovascular exam: PRESENT: RRR. ABSENT: diastolic murmur, rubs, systolic murmur GI/Abdominal exam: PRESENT: normal bowel sounds, soft. ABSENT: distended, guarding, mass, organolmegaly, rebound, tenderness Extremities exam: ABSENT: calf tenderness, clubbing, pedal edema Neurological exam: PRESENT: alert, awake, oriented to person, oriented to place , oriented to time, oriented to situation Psychiatric exam: PRESENT: appropriate affect Skin exam: PRESENT: dry, intact, warm. ABSENT: cyanosis, rash Results Laboratory Results: 09/12/16 05:22 09/12/16 05:22 Impressions: Chest X-Ray 09/09/16 00:00 IMPRESSION: 1. There is diffuse prominence of the interstitium and peribronchial cuffing which could represent underlying viral illness or reactive airway disease. There is vague opacity seen the left lateral lung base could represent atelectasis, edema or infiltrate. 2. Mild prominence of the left hilum, weight could be due to adenopathy or patient positioning though underlying mass lesion is not entirely excluded. Lung Scan-VQ CT 09/09/16 06:57 IMPRESSION: NORMAL VENTILATION-PERFUSION LUNG SCAN. NEGATIVE FOR PULMONARY EMBOLI. Assessment & Plan - Diagnosis (1) Acute hypoxemic respiratory failure Is this a current diagnosis for this admission?: YesPlan: Patient has an acute COPD exacerbation along with pneumonia as the cause. He is slowly improving. He is chronically on oxygen. He lives in [place] and is here visiting. We'll continue with the steroids and antibiotics. (2) Pneumonia Qualifiers: Pneumonia type: due to unspecified organism Laterality: left Lung location: lower lobe of lung Qualified Code(s): J18.1 - Lobar pneumonia, unspecified organism Is this a current diagnosis for this admission?: YesPlan: Cultures are negative so far. We'll continue with the cefepime and Zithromax. (3) COPD exacerbation Is this a current diagnosis for this admission?: YesPlan: Continue with theophylline and prednisone. (4) BPH (benign prostatic hyperplasia) Qualifiers: Prostatic enlargement morphology: unspecified morphology Lower urinary tract symptom presence: presence of symptoms unspecified Qualified Code(s ): N40.0 - Benign prostatic hyperplasia without lower urinary tract symptoms Is this a current diagnosis for this admission?: YesPlan: Asymptomatic. (5) Essential hypertension Is this a current diagnosis for this admission?: YesPlan: Patient is chronically on diltiazem. Because of his SVT we will add on Lopressor today also. (6) GERD (gastroesophageal reflux disease) Qualifiers: Esophagitis presence: without esophagitis Qualified Code(s): K21.9 - Gastro-esophageal reflux disease without esophagitis Is this a current diagnosis for this admission?: YesPlan: Asymptomatic.
[2016-09-13] MEDS: TAMSULOSIN HCL 0.4 MG CAP.SR.24H PO SCH (17:11)
[2016-09-14] MEDS: LEVALBUTEROL HCL NEB 1.25 MG/3 ML AMPUL NEB SCH ×4 (02:01→20:08)
[2016-09-14] MEDS: DILTIAZEM HCL 90 MG TABLET PO SCH ×3 (05:09→17:06)
[2016-09-14] MEDS: LANSOPRAZOLE 30 MG TAB.RAP.DR PO SCH ×2 (05:09→17:07)
[2016-09-14] MEDS: LACTULOSE SYRUP 20 GM/30 ML UDCUP PO SCH ×2 (05:11→13:37)
[2016-09-14 07:30] LABS: HEMOGLOBIN 10.8 g/dL (13.5-17.0); HGB HCT DIFFERENCE 1.4; MEAN CORPUSCULAR HEMOGLOBIN 31.7 pg (27.0-33.4); MEAN CORPUSCULAR HGB CONC 34.7 g/dL (32.0-36.0); MEAN CORPUSCULAR VOLUME 91 fl (80-97); RED BLOOD COUNT 3.39 10^6/uL (4.35-5.55); RED CELL DISTRIBUTION WIDTH 13.6 % (11.5-14.0); WHITE BLOOD COUNT 9.5 10^3/uL (4.0-10.5)
[2016-09-14 07:40] LABS: ANION GAP 10 (5-19); BLOOD UREA NITROGEN 15 mg/dL (7-20); CALCIUM 9.2 mg/dL (8.4-10.2); CARBON DIOXIDE 27 mmol/L (22-30); CHLORIDE 99 mmol/L (98-107); CREATININE RESULT 0.58 mg/dL (0.52-1.25); GLUCOSE 63 mg/dL (75-110); POTASSIUM 4.1 mmol/L (3.6-5.0)
[2016-09-14 08:00] LABS: BAND NEUTROPHILS % (MANUAL) 1 % (3-5); BASOPHILS % (MANUAL) 0 % (0-2); EOSINOPHILS % (MANUAL) 0 % (0-6); LYMPHOCYTES % (MANUAL) 17 % (13-45); RBC MORPHOLOGY COMMENT NORMO-CYTIC/CHROMIC; TOTAL CELLS COUNTED 100; TOXIC GRANULATION SLIGHT
[2016-09-14] MEDS: METOPROLOL TARTRATE 25 MG TABLET PO SCH (09:26)
[2016-09-14] MEDS: PREDNISONE 20 MG TABLET PO SCH (09:26)
[2016-09-14] MEDS: TIOTROPIUM BROMIDE DPI 5 CAP/KIT (18 MCG/CAP) IH SCH (09:27)
[2016-09-14] MEDS: ASPIRIN 325 MG TABLET PO SCH (09:27)
[2016-09-14] MEDS: GUAIFENESIN 600 MG TABLET.SA PO SCH (09:27)
[2016-09-14] MEDS: AZITHROMYCIN 250 MG TABLET PO SCH (09:27)
[2016-09-14] MEDS: FLUTICASONE/SALMETEROL DISKUS 500-50 MCG/DOSE IH SCH (09:28)
[2016-09-14] MEDS: THEOPHYLLINE ANHYDROUS 100 MG TAB.SR.12H PO SCH ×2 (09:28→17:06)
[2016-09-14] MEDS: CEFEPIME HCL 2 GM in DEXTROSE 5%-WATER 50 ML IV SCH (09:30)
--- NOTE | 2016-09-14 10:39 | PDOC PROGRESS REPORT ---
Subjective Progress Note for:: 09/14/16 Subjective:: Continues to have mild cough. Physical Exam Vital Signs: Temp Pulse Resp BP Pulse Ox 97.5 F 74 16 99/51 L 98 09/14/16 08:09 09/14/16 08:27 09/14/16 08:27 09/14/16 08:09 09/14/16 08:27 Pulse Oximeter Continuous Start: 09/09/16 11: 30 Freq: RTQ4 Status: Active Document 09/14/16 08:27 HCR (Rec: 09/14/16 09:47 HCR [email or web address]) Pulse Oximetry Assessment Oxygen Saturation (92-100) 98 Oxygen Flow Rate (L/min) 3 Oxygen Delivery Method Nasal Cannula Equipment Usage Equipment in Use Continuous SpO2 Machine # 5 Intake & Output 09/13/16 09/14/16 09/15/16 06:59 06:59 06:59 Intake Total 1020 410 Output Total 1230 2000 Balance -210 -1590 Weight 80.3 kg 80.6 kg General appearance: PRESENT: no acute distress Eye exam: PRESENT: conjunctiva pink Mouth exam: PRESENT: moist, tongue midline Neck exam: ABSENT: JVD Respiratory exam: PRESENT: clear to auscultation jordan. ABSENT: rales, rhonchi, wheezes Cardiovascular exam: PRESENT: RRR. ABSENT: diastolic murmur, rubs, systolic murmur GI/Abdominal exam: PRESENT: normal bowel sounds, soft. ABSENT: distended, guarding, mass, organolmegaly, rebound, tenderness Extremities exam: ABSENT: calf tenderness, clubbing, pedal edema Neurological exam: PRESENT: alert, awake, oriented to person, oriented to place , oriented to time, oriented to situation Psychiatric exam: PRESENT: appropriate affect Skin exam: PRESENT: dry, intact, warm. ABSENT: cyanosis, rash Results Laboratory Results: 09/14/16 06:41 09/14/16 06:41 09/14/16 09/14/16 06:41 06:41 WBC 9.5 RBC 3.39 L Hgb 10.8 L Hct 31.0 L MCV 91 MCH 31.7 MCHC 34.7 RDW 13.6 Plt Count 315 Seg Neutrophils % Not Reportable Lymphocytes % Not Reportable Monocytes % Not Reportable Eosinophils % Not Reportable Basophils % Not Reportable Absolute Neutrophils Not Reportable Absolute Lymphocytes Not Reportable Absolute Monocytes Not Reportable Absolute Eosinophils Not Reportable Absolute Basophils Not Reportable Sodium 136.0 L Potassium 4.1 Chloride 99 Carbon Dioxide 27 Anion Gap 10 BUN 15 Creatinine 0.58 Est GFR ( Amer) > 60 Est GFR (Non-Af Amer) > 60 Glucose 63 L Calcium 9.2 Impressions: Chest X-Ray 09/09/16 00:00 IMPRESSION: 1. There is diffuse prominence of the interstitium and peribronchial cuffing which could represent underlying viral illness or reactive airway disease. There is vague opacity seen the left lateral lung base could represent atelectasis, edema or infiltrate. 2. Mild prominence of the left hilum, weight could be due to adenopathy or patient positioning though underlying mass lesion is not entirely excluded. Lung Scan-VQ NM 09/09/16 06:57 IMPRESSION: NORMAL VENTILATION-PERFUSION LUNG SCAN. NEGATIVE FOR PULMONARY EMBOLI. Assessment & Plan - Diagnosis (1) Acute hypoxemic respiratory failure Is this a current diagnosis for this admission?: YesPlan: Patient has an acute COPD exacerbation along with pneumonia as the cause. He is slowly improving. He is chronically on oxygen. He lives in [place] and is here visiting. We'll continue with the steroids and antibiotics. (2) Pneumonia Qualifiers: Pneumonia type: due to unspecified organism Laterality: left Lung location: lower lobe of lung Qualified Code(s): J18.1 - Lobar pneumonia, unspecified organism Is this a current diagnosis for this admission?: YesPlan: Cultures are negative so far. We'll continue with the cefepime and Zithromax. (3) COPD exacerbation Is this a current diagnosis for this admission?: YesPlan: Continue with theophylline and prednisone. (4) BPH (benign prostatic hyperplasia) Qualifiers: Prostatic enlargement morphology: unspecified morphology Lower urinary tract symptom presence: presence of symptoms unspecified Qualified Code(s ): N40.0 - Benign prostatic hyperplasia without lower urinary tract symptoms Is this a current diagnosis for this admission?: YesPlan: Asymptomatic. (5) Essential hypertension Is this a current diagnosis for this admission?: YesPlan: Patient is chronically on diltiazem. Because of his SVT we will continue on Lopressor (6) GERD (gastroesophageal reflux disease) Qualifiers: Esophagitis presence: without esophagitis Qualified Code(s): K21.9 - Gastro-esophageal reflux disease without esophagitis Is this a current diagnosis for this admission?: YesPlan: Asymptomatic. - Time Time Spent with patient: 15-24 minutes - Inpatient Certification Medical Necessity: Need for IV Antibiotics - Plan Summary Plan Summary: Continues to improve hopefully we can discharge home in the next 24-48 hours.
[2016-09-14] MEDS: TAMSULOSIN HCL 0.4 MG CAP.SR.24H PO SCH (17:06)
[2016-09-15] MEDS: FLUTICASONE/SALMETEROL DISKUS 500-50 MCG/DOSE IH SCH ×3 (00:04→21:43)
[2016-09-15] MEDS: CARBOXYMETHYLCELLULOSE SOD 0.5% 0.4 ML DROPERETTE OU PRN ×2 (00:05→17:07)
[2016-09-15] MEDS: GUAIFENESIN 600 MG TABLET.SA PO SCH ×3 (00:05→21:42)
[2016-09-15] MEDS: CEFEPIME HCL 2 GM in DEXTROSE 5%-WATER 50 ML IV SCH ×2 (00:05→10:22)
[2016-09-15] MEDS: METOPROLOL TARTRATE 25 MG TABLET PO SCH ×3 (00:06→21:42)
[2016-09-15] MEDS: LACTULOSE SYRUP 20 GM/30 ML UDCUP PO SCH ×4 (00:06→21:43)
[2016-09-15] MEDS: DILTIAZEM HCL 90 MG TABLET PO SCH ×4 (01:46→17:06)
[2016-09-15] MEDS: LEVALBUTEROL HCL NEB 1.25 MG/3 ML AMPUL NEB SCH ×4 (02:19→19:56)
[2016-09-15] MEDS: LANSOPRAZOLE 30 MG TAB.RAP.DR PO SCH ×2 (05:31→17:07)
[2016-09-15] MEDS: THEOPHYLLINE ANHYDROUS 100 MG TAB.SR.12H PO SCH ×2 (10:12→17:07)
[2016-09-15] MEDS: ASPIRIN 325 MG TABLET PO SCH (10:12)
[2016-09-15] MEDS: AZITHROMYCIN 250 MG TABLET PO SCH (10:13)
[2016-09-15] MEDS: PREDNISONE 20 MG TABLET PO SCH (10:13)
[2016-09-15] MEDS: TIOTROPIUM BROMIDE DPI 5 CAP/KIT (18 MCG/CAP) IH SCH (10:14)
--- NOTE | 2016-09-15 10:35 | PDOC PROGRESS REPORT ---
Subjective Progress Note for:: 09/15/16 Subjective:: Denies any complaints. Physical Exam Vital Signs: Temp Pulse Resp BP Pulse Ox 97.7 F 68 14 117/55 L 100 09/15/16 07:56 09/15/16 07:56 09/15/16 07:56 09/15/16 07:56 09/15/16 07:56 Pulse Oximeter Continuous Start: 09/09/16 11: 30 Freq: RTQ4 Status: Active Document 09/15/16 07:41 CBR (Rec: 09/15/16 08:48 CBR [email or web address]) Pulse Oximetry Assessment Oxygen Saturation (92-100) 96 Oxygen Flow Rate (L/min) 3 Oxygen Delivery Method Nasal Cannula Fraction of Inspired Oxygen (FIO2) 32 Equipment Usage Equipment in Use Continuous SpO2 Machine # 5 Intake & Output 09/14/16 09/15/16 09/16/16 06:59 06:59 06:59 Intake Total 410 368 Output Total 2000 400 Balance -1590 -32 Weight 80.6 kg 80.6 kg General appearance: PRESENT: no acute distress Eye exam: PRESENT: conjunctiva pink Mouth exam: PRESENT: moist, tongue midline Neck exam: ABSENT: JVD Respiratory exam: PRESENT: clear to auscultation jordan. ABSENT: rales, rhonchi, wheezes Cardiovascular exam: PRESENT: RRR. ABSENT: diastolic murmur, rubs, systolic murmur GI/Abdominal exam: PRESENT: normal bowel sounds, soft. ABSENT: distended, guarding, mass, organolmegaly, rebound, tenderness Extremities exam: ABSENT: calf tenderness, clubbing, pedal edema Neurological exam: PRESENT: alert, awake, oriented to person, oriented to place , oriented to time, oriented to situation Psychiatric exam: PRESENT: appropriate affect Skin exam: PRESENT: dry, intact, warm. ABSENT: cyanosis, rash Results Laboratory Results: 09/14/16 06:41 09/14/16 06:41 Impressions: Chest X-Ray 09/09/16 00:00 IMPRESSION: 1. There is diffuse prominence of the interstitium and peribronchial cuffing which could represent underlying viral illness or reactive airway disease. There is vague opacity seen the left lateral lung base could represent atelectasis, edema or infiltrate. 2. Mild prominence of the left hilum, weight could be due to adenopathy or patient positioning though underlying mass lesion is not entirely excluded. Lung Scan-VQ [place] 09/09/16 06:57 IMPRESSION: NORMAL VENTILATION-PERFUSION LUNG SCAN. NEGATIVE FOR PULMONARY EMBOLI. Assessment & Plan - Diagnosis (1) Acute hypoxemic respiratory failure Is this a current diagnosis for this admission?: YesPlan: Patient has an acute COPD exacerbation along with pneumonia as the cause. He is slowly improving. He is chronically on oxygen. He lives in [place] and is here visiting. We'll continue with the steroids and antibiotics. (2) Pneumonia Qualifiers: Pneumonia type: due to unspecified organism Laterality: left Lung location: lower lobe of lung Qualified Code(s): J18.1 - Lobar pneumonia, unspecified organism Is this a current diagnosis for this admission?: YesPlan: Cultures are negative so far. We'll stop the IV antibiotics and switched to oral Ceftin. (3) COPD exacerbation Is this a current diagnosis for this admission?: YesPlan: Continue with theophylline and prednisone. (4) BPH (benign prostatic hyperplasia) Qualifiers: Prostatic enlargement morphology: unspecified morphology Lower urinary tract symptom presence: presence of symptoms unspecified Qualified Code(s ): N40.0 - Benign prostatic hyperplasia without lower urinary tract symptoms Is this a current diagnosis for this admission?: YesPlan: Asymptomatic. (5) Essential hypertension Is this a current diagnosis for this admission?: YesPlan: Patient is chronically on diltiazem. Because of his SVT we will continue on Lopressor (6) GERD (gastroesophageal reflux disease) Qualifiers: Esophagitis presence: without esophagitis Qualified Code(s): K21.9 - Gastro-esophageal reflux disease without esophagitis Is this a current diagnosis for this admission?: YesPlan: Asymptomatic. - Time Time Spent with patient: 25-34 minutes - Inpatient Certification Medical Necessity: Need Close Monitoring Due to Risk of Patient Decompensation
[2016-09-15] MEDS: CEFUROXIME 500 MG TABLET PO SCH (17:06)
[2016-09-15] MEDS: TAMSULOSIN HCL 0.4 MG CAP.SR.24H PO SCH (17:06)
[2016-09-16] MEDS: DILTIAZEM HCL 90 MG TABLET PO SCH ×3 (00:41→12:35)
[2016-09-16] MEDS: LEVALBUTEROL HCL NEB 1.25 MG/3 ML AMPUL NEB SCH ×3 (01:42→14:21)
[2016-09-16] MEDS: LANSOPRAZOLE 30 MG TAB.RAP.DR PO SCH (05:26)
[2016-09-16] MEDS: LACTULOSE SYRUP 20 GM/30 ML UDCUP PO SCH ×2 (05:27→13:30)
[2016-09-16] MEDS: CEFUROXIME 500 MG TABLET PO SCH (09:36)
[2016-09-16] MEDS: ASPIRIN 325 MG TABLET PO SCH (09:37)
[2016-09-16] MEDS: PREDNISONE 20 MG TABLET PO SCH (09:37)
[2016-09-16] MEDS: GUAIFENESIN 600 MG TABLET.SA PO SCH (09:37)
[2016-09-16] MEDS: THEOPHYLLINE ANHYDROUS 100 MG TAB.SR.12H PO SCH (09:37)
[2016-09-16] MEDS: TIOTROPIUM BROMIDE DPI 5 CAP/KIT (18 MCG/CAP) IH SCH (09:38)
[2016-09-16] MEDS: FLUTICASONE/SALMETEROL DISKUS 500-50 MCG/DOSE IH SCH (09:38)
[2016-09-16] MEDS: METOPROLOL TARTRATE 25 MG TABLET PO SCH (09:38)
--- NOTE | 2016-09-16 11:10 | PDOC DISCHARGE SUMMARY ---
General - Admit/Disc Date/PCP Admission Date/Primary Care Provider: 09/09/16 11:29 Discharge Date: 09/16/16 - Discharge Diagnosis (1) Acute hypoxemic respiratory failure Is this a current diagnosis for this admission?: YesSummary: Secondary to pneumonia and COPD. (2) Pneumonia Is this a current diagnosis for this admission?: YesSummary: With negative cultures. Presumed to be secondary to gram-positive cocci. he has completed a full course of antibiotics while hospitalized. (3) COPD exacerbation Is this a current diagnosis for this admission?: YesSummary: Treated with IV steroids and nebulizers. Patient is to be sent home on home oxygen at 2 L per nasal cannula (4) BPH (benign prostatic hyperplasia) Is this a current diagnosis for this admission?: Yes (5) Essential hypertension Is this a current diagnosis for this admission?: Yes (6) GERD (gastroesophageal reflux disease) Is this a current diagnosis for this admission?: Yes - Additional Information Discharge Diet: Cardiac Discharge Activity: Activity As Tolerated Home Medications: Albuterol Sulfate [Proair HFA] 2 puff IN PRN PRN 09/09/16 Esomeprazole Magnesium [Nexium] 1 cap PO DAILY 09/09/16 Fluticasone/Salmeterol [Advair 500-50 Diskus 28 Dose] 2 puff IN BID 09/09/16 Tamsulosin HCl 1 cap PO DAILY 09/09/16 Theophylline Anhydrous [Theophylline] 1 tab PO BID 09/09/16 Aspirin [Aspirin 325 mg Tablet] 325 mg PO DAILY tablet 09/16/16 Diltiazem HCl [Diltiazem 24Hr Cd] 360 mg PO DAILY #30 cap.er.24h 09/16/16 Lactulose [Cephulac Syrup 20 gm/30 ml Udcup] 20 gm PO Q8 30 Days 09/16/16 Metoprolol Tartrate [Lopressor 25 mg Tablet] 12.5 mg PO Q12 #60 tablet 09/16/16 Prednisone [Deltasone 20 mg Tablet] 10 mg PO DAILY #39 tablet 09/16/16 Tiotropium [place] [Spiriva Handihaler 5 Cap/Kit (18 Mcg/Cap)] 1 cap IH DAILY # 30 kit 09/16/16 History of Present Illness History of Present Illness: YANG CASTILLO is a 80 year old male who normally lives in [place] but was here visiting family. He presented with a one-week history of a cough that progressed in severity and also wheezing. Patient presented to emergency room was found to have a left lower lobe pneumonia as well as an acute COPD exacerbation and was admitted for IV antibiotics and IV steroids. Hospital Course Hospital Course: 80-year-old gentleman with COPD who was visiting family here from [place]. The patient developed a productive cough that progressed and his shortness of breath worsened. He presented to the emergency room and was found to have a left lower lobe pneumonia as well as an acute COPD exacerbation. Patient was admitted and started on IV antibiotics. Patient also was given IV steroids and nebulizers. The patient had blood cultures drawn and they were all negative. It's presumed that he had a gram-positive cocci as the source for his pneumonia. The patient's COPD exacerbation improved and his IV steroids were changed over to prednisone. The patient continued to have hypoxia and he will be sent home with oxygen 2 L per nasal cannula for treatment of this hypoxia. The patient's other medical problems were stable during this hospitalization. Physical Exam Vital Signs: Temp Pulse Resp BP Pulse Ox 97.6 F 78 16 130/55 H 97 09/16/16 07:57 09/16/16 07:58 09/16/16 07:58 09/16/16 07:57 09/16/16 07:58 Pulse Oximeter Continuous Start: 09/09/16 11: 30 Freq: RTQ4 Status: Active Document 09/16/16 07:58 LBR (Rec: 09/16/16 08:14 LBR [email or web address]) Pulse Oximetry Assessment Oxygen Saturation (92-100) 97 Oxygen Flow Rate (L/min) 2.5 Oxygen Delivery Method Nasal Cannula Fraction of Inspired Oxygen (FIO2) 30 Equipment Usage Equipment in Use Continuous SpO2 Machine # 5 Intake & Output 09/15/16 09/16/16 09/17/16 06:59 06:59 06:59 Intake Total 368 710 Output Total 400 Balance -32 710 Weight 80.6 kg 80.6 kg General appearance: PRESENT: no acute distress Eye exam: PRESENT: conjunctiva pink Mouth exam: PRESENT: moist, tongue midline Neck exam: ABSENT: JVD Respiratory exam: PRESENT: clear to auscultation jordan. ABSENT: rales, rhonchi, wheezes Cardiovascular exam: PRESENT: RRR. ABSENT: diastolic murmur, rubs, systolic murmur GI/Abdominal exam: PRESENT: normal bowel sounds, soft. ABSENT: distended, guarding, mass, organolmegaly, rebound, tenderness Extremities exam: ABSENT: calf tenderness, clubbing, pedal edema Neurological exam: PRESENT: alert, awake, oriented to person, oriented to place , oriented to time, oriented to situation Psychiatric exam: PRESENT: appropriate affect Skin exam: PRESENT: dry, intact, warm. ABSENT: cyanosis, rash Results Laboratory Results: 09/14/16 06:41 09/14/16 06:41 Impressions: Chest X-Ray 09/09/16 00:00 IMPRESSION: 1. There is diffuse prominence of the interstitium and peribronchial cuffing which could represent underlying viral illness or reactive airway disease. There is vague opacity seen the left lateral lung base could represent atelectasis, edema or infiltrate. 2. Mild prominence of the left hilum, weight could be due to adenopathy or patient positioning though underlying mass lesion is not entirely excluded. Lung Scan-VQ NM 09/09/16 06:57 IMPRESSION: NORMAL VENTILATION-PERFUSION LUNG SCAN. NEGATIVE FOR PULMONARY EMBOLI. Qualifiers PATEINT BEING DISCHARGED WITH ANY OF THE FOLLOWING DIAGNOSIS?: No Plan Discharge Plan: Patient is to be discharged home on home oxygen. He has completed a course of antibiotics. He will follow-up with his primary care doctor in the next 1-2 weeks. Time Spent: Greater than 30 Minutes
[2016-09-16 15:37] VITALS: BP 111/85
== END 2016-09-16 17:05 | disposition home health service (06) | DRG 193 ==
LOC: ER 05:39 → EH 10:11 → UNDOADMIN 10:11 → EH 11:29 → 4S 14:34
PROC: 3E0F73Z Introduction of Anti-inflammatory into Respiratory Tract, Via Natural or Artificial Opening (ICD-10-PCS; principal; 2016-09-09)
DX: J18.9 Pneumonia, unspecified organism (principal); J96.21 Acute and chronic respiratory failure with hypoxia; J44.1 Chronic obstructive pulmonary disease with (acute) exacerbation; I10 Essential (primary) hypertension; K21.9 Gastro-esophageal reflux disease without esophagitis; I48.0 Paroxysmal atrial fibrillation; N40.0 Benign prostatic hyperplasia without lower urinary tract symptoms; K44.9 Diaphragmatic hernia without obstruction or gangrene; Z90.49 Acquired absence of other specified parts of digestive tract; Z99.81 Dependence on supplemental oxygen; Z80.0 Family history of malignant neoplasm of digestive organs; Z88.2 Allergy status to sulfonamides; Z88.1 Allergy status to other antibiotic agents; Z91.041 Radiographic dye allergy status; Z82.3 Family history of stroke
CPT/HCPCS: 36415; 71010; 78582; 80048; 80198; 81001; 82553; 82803; 83605; 84484; 85025; 87040; 87070; 87205; 87804; 93005; 93010; 94640; 94762; 96365; 96367; 99291; A9540; A9567; G8978-GP; G8979-GP; G8980-GP; J0456; J0692; J0696; J1650; J2930; J3490; J7030; J7060; J7512; Q9969